=== PATIENT | female | born 1995 | race Caucasian/White ===

== ENCOUNTER → 2020-03-17 | Outpatient (CLI) | payer OTHER | END | disposition home or self-care (01) | LOC: RAD 15:55 | PROVIDERS: ATTEND Physician Assistant Surgical | DX: M48.56XA Collapsed vertebra, not elsewhere classified, lumbar region, initial encounter for fracture (principal); M43.8X6 Other specified deforming dorsopathies, lumbar region | CPT/HCPCS: 72131; 72148 ==